=== PATIENT | female | born 1985 | race Caucasian/White ===

== ENCOUNTER → 2016-06-24 | Outpatient (CLI) | payer OTHER ==
[~2016-06-24] MED LIST: FLEXERIL10 MG PO; MOTRIN800 MG PO
== END | disposition home or self-care (01) ==
LOC: NUC 12:26
DX: R63.4 Abnormal weight loss (principal); R63.0 Anorexia; R10.13 Epigastric pain; R11.0 Nausea; K82.8 Other specified diseases of gallbladder
CPT/HCPCS: 78227; A9537

== ENCOUNTER → 2017-02-12 | Outpatient (CLI) | payer OTHER ==
[~2017-02-12] VITALS: Ht 170.2 cm; Wt 65.8 kg
[~2017-02-12] MED LIST changes: +NEXIUM40 MG PO; +ZOFRAN ODT4 MG PO
[2017-02-12 08:25] LABS: HEMATOCRIT 35.1 % (36.0-46.0)
== END | disposition home or self-care (01) ==
LOC: AMB 02-05 08:00
PROVIDERS: Internal Medicine Gastroenterology
DX: R11.0 Nausea (principal); R10.13 Epigastric pain; Q45.3 Other congenital malformations of pancreas and pancreatic duct; Z80.0 Family history of malignant neoplasm of digestive organs; Z85.820 Personal history of malignant melanoma of skin; Z80.8 Family history of malignant neoplasm of other organs or systems; Z80.1 Family history of malignant neoplasm of trachea, bronchus and lung
CPT/HCPCS: 85014; 85018; J0330; J2250; J2405; J3010